=== PATIENT | male | born 1985 | race Two or more races ===

== ENCOUNTER 2023-08-31 14:24 | Inpatient (IN) | payer MEDICAID, OTHER ==
[~2023-08-31] VITALS: Ht 165.1 cm; Wt 77.8 kg
[2023-08-31 15:50] LABS: Alanine Aminotransferase 41 U/L (7-40); Albumin 4.1 g/dL (3.2-4.8); Alkaline Phosphatase 76 U/L (46-116); Anion Gap 7 (5-15); Aspartate Aminotransferase 26 U/L (13-40); BUN/Creatinine Ratio 20.9 (10.0-20.0); Blood Urea Nitrogen 18 mg/dL (9-23); Calcium 8.7 mg/dL (8.5-10.1); Carbon Dioxide 25 mmol/L (20-30); Chloride 102 mmol/L (98-107); Glucose 105 mg/dL (74-106); Potassium 3.5 mmol/L (3.5-5.1); Sodium 134 mmol/L (136-145); Total Protein 6.2 g/dL (5.7-8.2)
[2023-08-31 16:05] LABS: Lipase 25 U/L (12-53)
[2023-08-31 16:35] LABS: Basophils # (auto) 0 10 ^3/uL (0-0.2); Basophils % (auto) 0.2 % (0.0-2.0); Eosinophils # (auto) 0 10 ^3/uL (0-0.8); Hematocrit 46.3 % (41.0-53.0); Hemoglobin 15.6 g/dL (13.5-17.5); Lymphocytes # (auto) 0.4 10 ^3/uL (0.4-5.4); Lymphocytes % (auto) 2.3 % (10.0-50.0); Mean Corpuscular Hemoglobin 29.7 pg (28.0-32.0); Mean Corpuscular Hgb Conc. 33.8 g/dL (32.0-36.0); Monocytes # (auto) 0.9 10 ^3/uL (0-1.3); Monocytes % (auto) 4.9 % (0.0-12.0); Neutrophils # (auto) 16.4 10 ^3/uL (1.6-8.6); Neutrophils % (auto) 92.6 % (37.0-80.0); Red Blood Cells 5.26 10^6/uL (4.5-5.90); Red Cell Distribution Width 13.8 % (11.8-14.3); White Blood Cell 17.7 10^3/uL (4.4-10.8)
[2023-08-31] MEDS ORDERED: DexAMETHasone SOD PHOS 10MG/1ML VIAL INJ IV ONE (19:15)
[2023-08-31] MEDS ORDERED: KETOROLAC TROMETH 60MG/2ML VIAL IV ONE (19:15)
[2023-08-31] MEDS ORDERED: SODIUM CHLORIDE 0.9% 1,000 ML IV ONE (19:30)
[2023-08-31] MEDS ORDERED: ACETAMINOPHEN 325 MG TAB PO ONE (19:30)
[2023-08-31] MEDS ORDERED: PIPERACILLIN-TAZOB 3.375GM 100 ML IV ONE (19:30)
[2023-08-31] MEDS ORDERED: TEMAZEPAM 15 MG CAP PO PRN (20:45)
[2023-08-31] MEDS ORDERED: HYDROcodone-ACET 5/325MG TAB PO PRN (20:45)
[2023-08-31] MEDS ORDERED: ACETAMINOPHEN 325 MG TAB PO PRN (20:45)
[2023-08-31] MEDS ORDERED: ONDANSETRON HCL 4 MG/2 ML VIAL IV PRN (20:45)
[2023-08-31 20:54] LABS: Erythrocyte Sedimentation Rate 11 mm/hr (0-20)
[2023-08-31 21:53] VITALS: PULSE 104; RESP 20; O2SAT 97
[2023-09-01 03:49] LABS: Urine Bacteria NONE SEEN /hpf (None Seen); Urine Blood Negative /uL (Negative); Urine Clarity Clear (Clear); Urine Color Yellow (Yellow); Urine Protein, UAD TRACE (Negative); Urine Specific Gravity 1.026 (1.001-1.035); Urine Urobilinogen Normal (Negative); Urine WBC <1 /hpf (0 - 3); Urine pH 6.5 (5.0-8.0)
[2023-09-01 04:15] LABS: Basophils # (auto) 0 10 ^3/uL (0-0.2); Eosinophils # (auto) 0 10 ^3/uL (0-0.8); Hematocrit 44.7 % (41.0-53.0); Hemoglobin 15.3 g/dL (13.5-17.5); Lymphocytes # (auto) 0.5 10 ^3/uL (0.4-5.4); Lymphocytes % (auto) 3.4 % (10.0-50.0); Mean Corpuscular Hemoglobin 29.9 pg (28.0-32.0); Mean Corpuscular Hgb Conc. 34.1 g/dL (32.0-36.0); Mean Corpuscular Volume 87.5 fL (80.0-100.0); Monocytes # (auto) 0.3 10 ^3/uL (0-1.3); Monocytes % (auto) 1.7 % (0.0-12.0); Neutrophils # (auto) 14.3 10 ^3/uL (1.6-8.6); Neutrophils % (auto) 94.9 % (37.0-80.0); Red Blood Cells 5.11 10^6/uL (4.5-5.90); White Blood Cell 15.1 10^3/uL (4.4-10.8)
[2023-09-01 04:27] LABS: Alanine Aminotransferase 50 U/L (7-40); Alkaline Phosphatase 75 U/L (46-116); Anion Gap 7 (5-15); Aspartate Aminotransferase 36 U/L (13-40); BUN/Creatinine Ratio 14.6 (10.0-20.0); Bilirubin, Total 0.9 mg/dL (0.2-1.0); Blood Urea Nitrogen 13 mg/dL (9-23); Calcium 8.8 mg/dL (8.7-10.4); Carbon Dioxide 25 mmol/L (20-30); Chloride 102 mmol/L (98-107); Glucose 160 mg/dL (74-106); Potassium 3.7 mmol/L (3.5-5.1); Sodium 134 mmol/L (136-145); Total Protein 6.6 g/dL (5.7-8.2)
[2023-09-01 04:39] LABS: Amphetamine Screen, Urine Pos (NEGATIVE); Barbiturate Scree,Urine Neg (NEGATIVE); Benzodiazephine Screen, Urine Neg (NEGATIVE); Cannabinoid Screen, Urine Neg (NEGATIVE); Cocaine Screen, Urine Neg (NEGATIVE); Opiate Scree,Urine Neg (NEGATIVE); Phencyclidine Screen, Urine Neg (NEGATIVE)
[2023-09-01] MEDS ORDERED: BACLOFEN 10 MG TAB PO PRN ×2 (06:15→06:30)
[2023-09-01] MEDS ORDERED: BACLOFEN 10 MG TAB PO ONE (06:15)
[2023-09-01] MEDS: cefTRIAXone 1GM/50ML D5W 50 ML IV SCH (09:06)
[2023-09-01 09:12] VITALS: PULSE 81; RESP 16; O2SAT 99
[2023-09-01] MEDS ORDERED: VANCOMYCIN PER PHARMACY 0 MG IV SCH (10:30)
[2023-09-01] MEDS ORDERED: VANCOMYCIN 1GM/250ML 250 ML IV ONE (11:00)
[2023-09-01 13:50] VITALS: BP 161/99; PULSE 95; RESP 19; TEMP 99.3; O2SAT 99
[2023-09-01 17:00] VITALS: BP 155/95; PULSE 90; RESP 18; TEMP 99.2; O2SAT 98
[2023-09-01] MEDS: VANCOMYCIN 1GM/250ML 250 ML IV SCH (17:47)
[2023-09-01 22:00] VITALS: BP 154/91; PULSE 87; RESP 16; TEMP 98.3; O2SAT 97
[2023-09-02] MEDS: VANCOMYCIN 1GM/250ML 250 ML IV SCH ×3 (03:17→18:00)
[2023-09-02 05:00] VITALS: BP 159/102; PULSE 84; RESP 18; TEMP 98.7; O2SAT 95
[2023-09-02] MEDS: cefTRIAXone 1GM/50ML D5W 50 ML IV SCH (08:56)
[2023-09-02 09:00] VITALS: BP 164/110; PULSE 90; RESP 20; TEMP 99.2; O2SAT 97
[2023-09-02] MEDS: LISINOPRIL 20 MG TAB PO SCH (10:25)
[2023-09-02 13:11] VITALS: BP 148/93; PULSE 84; RESP 16; TEMP 98.5; O2SAT 100
[2023-09-02 17:00] VITALS: BP 162/104; PULSE 83; RESP 18; TEMP 98.7; O2SAT 96
[2023-09-02 22:00] VITALS: BP 154/102; PULSE 96; RESP 20; TEMP 97.9; O2SAT 97
[2023-09-02 23:17] VITALS: BP 140/89; PULSE 93; RESP 17; TEMP 97.9; O2SAT 95
[2023-09-03] MEDS: VANCOMYCIN 1GM/250ML 250 ML IV SCH ×4 (00:18→23:42)
[2023-09-03 05:00] VITALS: BP 154/104; PULSE 76; RESP 18; TEMP 97.7; O2SAT 98
[2023-09-03 08:16] LABS: Basophils # (auto) 0 10 ^3/uL (0-0.2); Basophils % (auto) 0.1 % (0.0-2.0); Eosinophils # (auto) 0 10 ^3/uL (0-0.8); Eosinophils % (auto) 0.1 % (0.0-7.0); Hematocrit 49.1 % (41.0-53.0); Hemoglobin 16.9 g/dL (13.5-17.5); Lymphocytes # (auto) 1.4 10 ^3/uL (0.4-5.4); Lymphocytes % (auto) 9.6 % (10.0-50.0); Mean Corpuscular Hgb Conc. 34.5 g/dL (32.0-36.0); Mean Corpuscular Volume 86.9 fL (80.0-100.0); Monocytes # (auto) 1.3 10 ^3/uL (0-1.3); Monocytes % (auto) 9.1 % (0.0-12.0); Neutrophils # (auto) 12.1 10 ^3/uL (1.6-8.6); Neutrophils % (auto) 81.1 % (37.0-80.0); Nucleated Red Blood Cells % 0.2 %; Red Blood Cells 5.65 10^6/uL (4.5-5.90); Red Cell Distribution Width 13.5 % (11.8-14.3); White Blood Cell 14.9 10^3/uL (4.4-10.8)
[2023-09-03 09:00] VITALS: BP 149/100; PULSE 76; RESP 16; TEMP 97.4; O2SAT 98
[2023-09-03] MEDS: cefTRIAXone 1GM/50ML D5W 50 ML IV SCH (09:06)
[2023-09-03] MEDS: LISINOPRIL 20 MG TAB PO SCH (09:06)
[2023-09-03 13:00] VITALS: BP 165/109; PULSE 72; RESP 16; TEMP 97.7; O2SAT 97
[2023-09-03 17:00] VITALS: BP 154/102; PULSE 77; RESP 16; TEMP 97.7; O2SAT 97
[2023-09-03 22:00] VITALS: BP 169/100; PULSE 86; RESP 20; TEMP 98.1; O2SAT 97
[2023-09-04] MEDS ORDERED: hydrALAZINE HCL 20 MG/ML VL IV PRN (00:30)
[2023-09-04 05:00] VITALS: BP_SYST 144; PULSE 91; RESP 20; TEMP 98.3; O2SAT 97
[2023-09-04] MEDS: VANCOMYCIN 1GM/250ML 250 ML IV SCH ×2 (06:05→11:42)
[2023-09-04] MEDS: cefTRIAXone 1GM/50ML D5W 50 ML IV SCH (08:49)
[2023-09-04] MEDS: LISINOPRIL 20 MG TAB PO SCH (08:50)
[2023-09-04 09:00] VITALS: BP 133/81; PULSE 89; RESP 18; TEMP 98.6; O2SAT 98
[2023-09-04] MEDS ORDERED: HYDR-4902 PO (11:44)
[2023-09-04] MEDS ORDERED: BACL5TAB2 PO (11:44)
[2023-09-04] MEDS ORDERED: LEVO500T91 PO (11:44)
[2023-09-04 12:16] VITALS: BP 143/95; PULSE 85; RESP 18; TEMP 98.1; O2SAT 95
[2023-09-04 12:30] VITALS: BP 143/95; PULSE 85; RESP 18; TEMP 98.1; O2SAT 95
== END 2023-09-04 14:00 | disposition home or self-care (01) | DRG 720 ==
LOC: EDBD 14:24 → ER 14:24 → OVERFLOW 20:38 → UNDOADMIN 21:23 → WEST WING 09-01 13:15
PROVIDERS: ADMIT Nurse Practitioner; ATTEND Family Medicine
DX: A41.01 Sepsis due to Methicillin susceptible Staphylococcus aureus (principal); E87.21 Acute metabolic acidosis; F15.10 Other stimulant abuse, uncomplicated; S39.012A Strain of muscle, fascia and tendon of lower back, initial encounter; N39.0 Urinary tract infection, site not specified; R79.89 Other specified abnormal findings of blood chemistry; Z71.51 Drug abuse counseling and surveillance of drug abuser; X58.XXXA Exposure to other specified factors, initial encounter; Y93.89 Activity, other specified; Y92.89 Other specified places as the place of occurrence of the external cause; Y99.8 Other external cause status
CPT/HCPCS: 36415; 72131; 74177; 80053; 80202; 80307; 81001; 82565; 83605; 83690; 85025; 85652; 86141; 87040; 87077; 87186; G0378; J0696; J1100; J1885; J2405; J2543